=== PATIENT | female | born 1960 | race Caucasian/White ===

== ENCOUNTER → 2024-10-10 10:08 | Outpatient (CLI) | payer BC, SELFPAY ==
--- NOTE | 2024-10-10 10:13 | DI.ECHO.S_ITS ---
[facility]+ [facility] : : [address] : : [place] : : [id number] : : Phone: [phone] Echocardiogram Report + + :Name: LUDA GREY Study Date: 10/10/2024 Height: 70 in : :Hospital ReadingLocation: Weight: 366 lb : : Gender: Female BSA: 2.7 m2 : :: 1960 Age: 63 yrs BP: 148/81 mmHg: :Reason For Study: ATRIAL FIBRILLATION, FLECAINIDE THERAPY : :Ordering Physician: TOMAS, : :HOLA Performed By: Alondra Virk : :Referring: HOLA ISLAS : + + Interpretation Summary The left ventricle is normal in size and wall thickness. The ejection fraction is estimated to be 60-65%. Left ventricular wall motion is normal. This is unchanged compared to the previous study. The right ventricle is normal in size and function. Pulmonary artery pressures cannot be estimated because of the lack of a measurable TR jet velocity but the IVC suggests a CVP of around 3 mmHg. The left atrial size is normal. There is no significant valvular heart disease. The aortic root is normal size. Procedure: A two-dimensional transthoracic echocardiogram with color flow and Doppler was performed. The study quality was technically adequate. Comparison is made with the echocardiogram of 05/13/2019. The patient was in sinus rhythm with heart rates between 57-66 bpm during the exam. Left Ventricle: The left ventricle is normal in size and wall thickness. The ejection fraction is estimated to be 60-65%. This is unchanged compared to the previous study. Left ventricular wall motion is normal. Diastolic parameters suggest probable normal left ventricular diastolic function and normal filling pressures. Right Ventricle: The right ventricle is normal in size and function. Atria: The left atrial size is normal. Right atrial size is normal. There is no Doppler evidence for an interatrial shunt. Mitral Valve: The mitral valve leaflets appear to open well. There is trace mitral regurgitation. Aortic Valve: The aortic valve is trileaflet. The aortic valve opens well. There is no aortic valve stenosis. No aortic regurgitation is present. Tricuspid Valve: The tricuspid valve leaflets are thin and pliable. There is trace tricuspid regurgitation. Pulmonary artery pressures cannot be estimated because of the lack of a measurable TR jet velocity but the IVC suggests a CVP of around 3 mmHg. Pulmonic Valve: The pulmonic valve leaflets are thin and pliable; valve motion is normal. There is no pulmonic valvular regurgitation. There is no significant valvular heart disease. Great Vessels: The aortic root is normal size. The dimensions of the ascending aorta are normal. The IVC is of normal diameter and collapses greater than 50% with a sniff. This suggests a low right atrial pressure of 3 mm Hg. Pericardium/ Pleura There is no pericardial effusion. There is no pleural effusion. MMode/2D Measurements & Calculations LVIDd: 4.6 cm LVOT diam: 2.1 cm LVIDs: 3.0 cm Ao root diam: 2.9 cm FS: 34.3 % asc Aorta Diam: 3.6 cm IVSd: 0.90 cm Ao Arch Diam (Prox Trans): 3.1 cm LVPWd: 0.93 cm LV kerr. diameter/BSA (cm/m^2): 1.7 LV sys. diameter/BSA (cm/m^2): 1.1 LA A2 area: 21.9 cm2 RA long axis: 4.4 cm LA A4 area: 16.7 cm2 RA area: 14.1 cm2 LA length (vol): 5.6 cm RA vol: 38.1 ml LA vol: 55.3 ml RA : 14.1 ml/m2 LA vol index: 20.5 ml/m2 IVC diam: 1.4 cm RVD1 (basal): 3.0 cm RVD2 (mid): 2.6 cm TAPSE: 2.0 cm Doppler Measurements & Calculations Ao V2 max: 149.6 cm/sec LVOT Max Mac: 95.2 cm/sec Ao V2 mean: 99.7 cm/sec LV V1 max P.6 mmHg Ao max P.0 mmHg LV V1 VTI: 23.7 cm Ao mean P.5 mmHg LE(I,D): 2.4 cm2 Ao V2 VTI: 34.6 cm LE(V,D): 2.2 cm2 sev ratio: 0.69 LE indexed to BSA (cm^2/m^2): 0.88 MV E max mac: 68.4 cm/sec PA V2 max: 117.4 cm/sec MV A max mac: 56.0 cm/sec PA V2 mean: 80.6 cm/sec MV E/A: 1.2 PA mean P.0 mmHg Med Peak E' Mac: 6.8 cm/sec PA pr(Accel): 25.1 mmHg E/E' med: 10.1 Lat Peak E' Mac: 13.1 cm/sec E/E' lat: 5.2 E/e' average: 7.7 MV dec time: 0.22 sec SV(LVOT): 82.2 ml Reading Physician:11:40 PM
== END ==
LOC: ECHO 10:13
PROVIDERS: PCP Internal Medicine; Referring Provider Internal Medicine Cardiovascular Disease; Visit Provider Internal Medicine Cardiovascular Disease
DX: I48.0 Paroxysmal atrial fibrillation (principal); Z51.81 Encounter for therapeutic drug level monitoring; Z79.899 Other long term (current) drug therapy
CPT/HCPCS: 93306